=== PATIENT | male | born 1975 | race Caucasian/White ===

== ENCOUNTER 2018-10-09 13:41 | Emergency (ER) | payer BC ==
[2018-10-09 14:31] VITALS: BMI 29.9
[2018-10-09] MEDS ORDERED: Iohexol 240 (50 ml) PO ONE (15:02)
[2018-10-09] MEDS ORDERED: Morphine 4 MG/ML VIAL IVP ONE (15:04)
[2018-10-09] MEDS ORDERED: Sodium Chloride 0.9% 1,000 ML IV ONE (15:05)
[2018-10-09] MEDS ORDERED: Morphine 4 MG/ML VIAL ONE (15:12)
[2018-10-09] MEDS ORDERED: Iohexol 240 (50 ml) ONE (15:12)
[2018-10-09 15:35] LABS: BASO % 0.4 % (0.0-2.0); EOS # 0.2 K/uL (0.0-0.7); EOS % 2.1 % (0.0-4.0); HEMOGLOBIN 15.1 g/dL (12.0-18.0); LYMPH # 0.4 K/uL (1.0-4.3); LYMPH % 5.2 % (20.0-40.0); MEAN CELL VOLUME 94.1 fl (80.0-94.0); MEAN CORPUSCULAR HEMOGLOBIN 31.6 pg (27.0-31.0); MEAN CORPUSCULAR HGB CONC 33.6 g/dL (33.0-37.0); MEAN PLATELET VOLUME 8.3 fl (7.2-11.7); MONO % 13.1 % (0.0-10.0); NEUT # 6.1 K/uL (1.8-7.0); NEUT % 79.2 % (50.0-75.0); NRBC % 0.1 % (0.0-0.0); PLATELET COUNT 266 K/uL (130-400); RBC 4.76 Mil/uL (4.40-5.90); RED CELL DISTRIBUTION WIDTH 13.8 % (11.5-14.5); WHITE BLOOD COUNT 7.7 K/uL (4.8-10.8)
[2018-10-09 15:43] LABS: ALB/GLOB RATIO 1.4 (1.0-2.1); ALBUMIN 4.6 g/dL (3.5-5.0); ALT/SGPT 18 U/L (21-72); AST/SGOT 25 U/L (17-59); BLOOD UREA NITROGEN 13 mg/dl (9-20); CALCIUM 9.7 mg/dL (8.4-10.2); GFR NON-AFRICAN AMERICAN > 60; LIPASE 26 U/L (23-300)
[2018-10-09] MEDS ORDERED: Iohexol 300 100 ML IJ ONE (18:35)
[2018-10-09] MEDS ORDERED: Sodium Chloride 0.9% 50 ML IV ONE (18:35)
--- NOTE | 2018-10-09 18:55 | ED PDOC ---
HPI: Abdomen Time Seen by Provider: 10/09/18 15:02 Chief Complaint (Nursing): Abdominal Pain Chief Complaint (Provider): Difuse Abdominal pain History Per: Patient History/Exam Limitations: no limitations Onset/Duration Of Symptoms: Days (seven or eight) Outside of [place] travel?: No Current Symptoms Are (Timing): Still Present Severity: Mild Location Of Pain/Discomfort: Diffuse Quality Of Discomfort: Unable To Describe (Pt presents to the ED in a febrile state complaining of difuse abdominal pain, nausea and occasional vomiting; pt denies ill contacts but does acknowledge heavy consumption of tequila from time to time) Past Medical History Reviewed: Historical Data, Nursing Documentation, Vital Signs Vital Signs: Last Vital Signs Temp 100.9 F H 10/09/18 14:34 Pulse 84 10/09/18 14:32 Resp 20 10/09/18 14:32 BP 117/68 10/09/18 14:32 Pulse Ox 99 10/09/18 14:32 - Medical History PMH: Denies: Depression - Family History Family History: States: Unknown Family Hx - Home Medications Home Medications: Ambulatory Orders Medication Instructions Recorded No Known Home Med 12/21/12 Sulfamethoxazole/Trimethoprim 1 tab PO BID #20 tab 12/22/12 [Bactrim DS 800 mg-160 mg] Tramadol HCl [Ultram] 50 mg PO QID #12 tab 12/22/12 - Allergies Allergies/Adverse Reactions: Allergies Allergy/AdvReac Type Severity Reaction Status Date / Time No Known Allergies Allergy Verified 12/21/12 21:42 Review of Systems ROS Statement: Except As Marked, All Systems Reviewed And Found Negative Constitutional: Positive for: Fever Gastrointestinal: Positive for: Nausea, Vomiting, Abdominal Pain Physical Exam - Reviewed Nursing Documentation Reviewed: Yes Vital Signs Reviewed: Yes - Physical Exam Appears: Positive for: Well, Non-toxic, No Acute Distress. Negative for: Uncomfortable Head Exam: Positive for: ATRAUMATIC, NORMAL INSPECTION Skin: Positive for: Normal Color, Warm, Dry. Negative for: Pallor, Rash Eye Exam: Positive for: Normal appearance, PERRL Neck: Positive for: Normal, Painless ROM, Supple. Negative for: Decreased ROM Cardiovascular/Chest: Positive for: Regular Rate, Rhythm Respiratory: Positive for: Normal Breath Sounds. Negative for: Decreased Breath Sounds, Accessory Muscle Use, Crackles, Rales, Rhonchi, Stridor, Wheezing, Respiratory Distress Pulses-Carotid (L): 2+ Pulses-Carotid (R): 2+ Pulses-Radial (L): 2+ Pulses-Radial (R): 2+ Gastrointestinal/Abdominal: Positive for: Bowel Sounds (positive in all four quadrants), Soft, Tenderness (difuse tenderness with equivocal pain at mcburney point and worrell sign; there is no rebound or guarding). Negative for: Distended, Guarding, Rebound Back: Positive for: Normal Inspection. Negative for: L CVA Tenderness, R CVA Tenderness - Laboratory Results Result Diagrams: 10/09/18 15:20 10/09/18 15:20 Lab Results: Troponin I < 0.0120 ng/mL (0.00-0.120) 10/09/18 15:20 Total Bilirubin 0.6 mg/dl (0.2-1.3) 10/09/18 15:20 AST 25 U/L (17-59) 10/09/18 15:20 ALT 18 U/L (21-72) L 10/09/18 15:20 Alkaline Phosphatase 54 U/L (38-126) 10/09/18 15:20 Total Protein 7.9 G/DL (6.3-8.2) 10/09/18 15:20 Albumin 4.6 g/dL (3.5-5.0) 10/09/18 15:20 Globulin 3.3 gm/dL (2.2-3.9) 10/09/18 15:20 Albumin/Globulin Ratio 1.4 (1.0-2.1) 10/09/18 15:20 Lipase 26 U/L (23-300) 10/09/18 15:20 - ECG O2 Sat by Pulse Oximetry: 99 Medical Decision Making Medical Decision Making: R/O Actute abdomen CBC CMP CT Abd with and with FINDINGS: LOWER THORAX: No visible consolidation, pleural effusion, or pneumothorax. LIVER: Unremarkable. GALLBLADDER AND BILE DUCTS: Unremarkable. PANCREAS: Unremarkable. SPLEEN: Unremarkable. ADRENALS: Unremarkable. KIDNEYS AND URETERS: The kidneys enhance symmetrically. No hydronephrosis or obstructing renal calculus. BLADDER: Mild thick walled underdistended urinary bladder; recommend correlation with urinalysis. REPRODUCTIVE: Unremarkable. APPENDIX: The appendix appears within normal limits of caliber. No secondary signs of acute appendicitis. BOWEL: The stomach is nondistended. The bowel loops appear within normal limits of caliber without evidence of intestinal obstruction. PERITONEUM: No significant free fluid. No definite free air. LYMPH NODES: No bulky lymphadenopathy identified. VASCULATURE: No aortic aneurysm. No atherosclerotic calcification or mural plaque present. BONES: Degenerative changes. OTHER FINDINGS: None. IMPRESSION: Mild thick walled underdistended urinary bladder; recommend correlation with urinalysis. Disposition - Clinical Impression Clinical Impression: Abdominal pain - Patient ED Disposition Is Patient to be Admitted: Transfer of Care - Disposition Disposition: Transfer of Care Disposition Time: 20:09 Condition: STABLE Forms: [email or web address] (Chilean)
--- NOTE | 2018-10-09 19:16 | CT ---
PROCEDURE: CT Abdomen and Pelvis with oral and IV contrast. HISTORY: r/o acute abdomen; pancreatitis COMPARISON: None available TECHNIQUE: Contiguous axial images of the abdomen and pelvis. Oral and IV contrast was administered. Coronal and Sagittal reformats generated and reviewed. Contrast dose: 95 mL Omnipaque 300 IV Radiation dose: Total exam DLP = 627.81 mGy-cm. This CT exam was performed using one or more of the following dose reduction techniques: Automated exposure control, adjustment of the mA and/or kV according to patient size, and/or use of iterative reconstruction technique. FINDINGS: LOWER THORAX: No visible consolidation, pleural effusion, or pneumothorax. LIVER: Unremarkable. GALLBLADDER AND BILE DUCTS: Unremarkable. PANCREAS: Unremarkable. SPLEEN: Unremarkable. ADRENALS: Unremarkable. KIDNEYS AND URETERS: The kidneys enhance symmetrically. No hydronephrosis or obstructing renal calculus. BLADDER: Mild thick walled underdistended urinary bladder; recommend correlation with urinalysis. REPRODUCTIVE: Unremarkable. APPENDIX: The appendix appears within normal limits of caliber. No secondary signs of acute appendicitis. BOWEL: The stomach is nondistended. The bowel loops appear within normal limits of caliber without evidence of intestinal obstruction. PERITONEUM: No significant free fluid. No definite free air. LYMPH NODES: No bulky lymphadenopathy identified. VASCULATURE: No aortic aneurysm. No atherosclerotic calcification or mural plaque present. BONES: Degenerative changes. OTHER FINDINGS: None. IMPRESSION: Mild thick walled underdistended urinary bladder; recommend correlation with urinalysis.
[2018-10-09 19:38] LABS: BANDS 3 % (0-2); EOSINOPHIL 3 % (0-7); LYMPHOCYTE 9 % (20-50); MONOCYTE 12 % (0-10); NEUTROPHIL 73 % (42-75); TOTAL CELLS COUNTED 100
[2018-10-09 19:39] LABS: PLATELET ESTIMATE NORMAL (NORMAL); TOXIC GRANULATION PRESENT
[2018-10-09 20:28] LABS: URINE BILIRUBIN NEGATIVE (NEGATIVE); URINE CLARITY CLEAR (Clear); URINE COLOR STRAW (YELLOW); URINE GLUCOSE (UA) NEG (NEGATIVE); URINE LEUKOCYTE ESTERASE NEG Leu/uL (Negative); URINE PROTEIN NEGATIVE (NEGATIVE); URINE UROBILINOGEN 0.2-1.0 mg/dL (0.2-1.0)
[2018-10-09 20:32] LABS: URINE BLOOD TRACE (NEGATIVE)
--- NOTE | 2018-10-09 20:59 | ED PDOC ---
- Laboratory Results Result Diagrams: 10/09/18 15:20 10/09/18 15:20 Lab Results: Troponin I < 0.0120 ng/mL (0.00-0.120) 10/09/18 15:20 Total Bilirubin 0.6 mg/dl (0.2-1.3) 10/09/18 15:20 AST 25 U/L (17-59) 10/09/18 15:20 ALT 18 U/L (21-72) L 10/09/18 15:20 Alkaline Phosphatase 54 U/L (38-126) 10/09/18 15:20 Total Protein 7.9 G/DL (6.3-8.2) 10/09/18 15:20 Albumin 4.6 g/dL (3.5-5.0) 10/09/18 15:20 Globulin 3.3 gm/dL (2.2-3.9) 10/09/18 15:20 Albumin/Globulin Ratio 1.4 (1.0-2.1) 10/09/18 15:20 Lipase 26 U/L (23-300) 10/09/18 15:20 Urine Color Straw (YELLOW) 10/09/18 19:43 Urine Clarity Clear (Clear) 10/09/18 19:43 Urine pH 7.0 (5.0-8.0) 10/09/18 19:43 Ur Specific [place] 1.010 (1.003-1.030) 10/09/18 19:43 Urine Protein Negative mg/dL (NEGATIVE) 10/09/18 19:43 Urine Glucose (UA) Neg mg/dL (NEGATIVE) 10/09/18 19:43 Urine Ketones 20 mg/dL (NEGATIVE) 10/09/18 19:43 Urine Blood Trace (NEGATIVE) H 10/09/18 19:43 Urine Nitrate Negative (NEGATIVE) 10/09/18 19:43 Urine Bilirubin Negative (NEGATIVE) 10/09/18 19:43 Urine Urobilinogen 0.2-1.0 mg/dL (0.2-1.0) 10/09/18 19:43 Ur Leukocyte Esterase Neg [place]/uL (Negative) 10/09/18 19:43 Urine RBC (Auto) 3 /hpf (0-3) 10/09/18 19:43 Urine Microscopic WBC < 1 /hpf (0-5) 10/09/18 19:43 - ECG O2 Sat by Pulse Oximetry: 99 - Progress ED Course And Treament: Case endorsed to news writer from Richelle ACOSTA pending u/a Patient educated on findings, discharged with rx Ibuprofen, Zofran Advised fluids, bland diet, rest. Follow up with PMD within 2-3 days Return precautions given' Disposition - Clinical Impression Clinical Impression: Abdominal pain, Gastroenteritis - POA Present On Arrival: None - Disposition Disposition: Routine/Home Disposition Time: 21:00 Condition: IMPROVED Prescriptions: Ibuprofen [Motrin Tab] 1 tab PO Q6 PRN #15 tab PRN Reason: Fever >100.4 F Ondansetron ODT [Zofran ODT] 4 mg PO Q8 PRN #10 odt PRN Reason: Nausea/Vomiting Instructions: Viral Gastroenteritis Forms: [facility] (Yoruba)
[2018-10-09 21:11] VITALS: BP 103/70; PULSE 73; RESP 17; TEMP 100.2; O2SAT 98
--- NOTE | 2018-10-10 09:08 | CARD ---
APPROVED REPORT Date of service: 10/09/2018 EKG Measurement Heart [id number] <Conclusion> Normal sinus rhythm with sinus arrhythmia Normal ECG
== END 2018-10-09 21:15 | disposition home or self-care (01) ==
LOC: H.ER 13:41
DX: R10.9 Unspecified abdominal pain (principal); K52.9 Noninfective gastroenteritis and colitis, unspecified
CPT/HCPCS: 74177; 80053; 81003; 83690; 84484; 85025; 87804; 93005; 96374; 96375; 99284; J2270; J2405; J7030; Q9966; Q9967